=== PATIENT | male | born 1980 | race African-American/Black ===

== ENCOUNTER 2017-02-02 07:46 | Outpatient (CLI) | payer MEDICAID ==
[~2017-02-02] VITALS: Ht 177.8 cm; Wt 75.0 kg
--- NOTE | ~2017-02-02 | HEMODYNAMI ---
PATIENT:VESTA LAZAR MEDICAL RECORD: [id number] : 82 [facility] ADMISSION DATE: 02/02/17 Generatedon:02/02/201711:16 Patient name: VESTA LAZAR Patient #: [id number] SSN: : 1980 Date of study: 02/02/2017 Page: Of Hemodynamic Procedure Report Patient Data Patient Demographics Procedure consent was obtained First Name: VESTA Gender: Male Last Name: NAGI : 1980 Middle Initial: NICOLE Age: 37 year(s) Patient #: [id number] Race: Black Additional ID: [id number] Contact details [address]: [address] [place] [address] State: [place] City: [place] Zip code: [address] Past Medical History Allergies: No known allergies Admission Admission Data Admission Date: 02/02/2017 Admission Time: 7:46 Weight (lbs.): 165 Weight (kg.): 74.84 Procedure Procedure Types Cath Procedure Peripheral Cath Diagnostic Procedure Cath Peripheral Miscellaneous PARACENTESIS WITH GUIDE Procedure Description Procedure Date Procedure Date: 02/02/2017 Procedure Start Time: 10:30 Procedure Staff Name Function Eliel Jones MD Performing Physician Emery Ruelas RT Scrub Tessa Feliciano RN Nurse Vidhi Danielson RT Manager Of Internal Audit Vidhi Danielson RT Monitor Hemodynamics Rest Heart Rate: 65 (bpm) Snapshots Pre Cath Intra NCS Post Cath Vital Signs Time Heart Resp SPO2 NIBP (mmHg) Rhythm Pain Sedation Rate (ipm) (%) Status Level (bpm) 10:16:27 62 26 99 146/88(118) NSR 0 (11) 10(A) , No pain 10:20:37 62 13 100 156/93(126) NSR 0 (11) 10(A) , No pain 10:24:53 65 99 156/90(126) NSR 0 (11) 10(A) , No pain 10:29:11 60 99 146/83(125) NSR 0 (11) 10(A) , No pain 10:33:23 65 23 100 147/91(126) NSR 0 (11) 10(A) , No pain 10:37:45 67 5 142/67(128) NSR 0 (11) 10(A) , No pain 10:41:53 63 28 141/92(124) NSR 0 (11) 10(A) , No pain 10:46:03 62 28 132/88(116) NSR 0 (11) 10(A) , No pain 10:50:09 62 139/88(121) NSR 0 (11) 10(A) , No pain 10:54:21 57 23 141/83(120) NSR 0 (11) 10(A) , No pain 10:58:31 54 140/89(126) NSR 0 (11) 10(A) , No pain 11:02:43 60 26 139/82(117) NSR 0 (11) 10(A) , No pain 11:06:52 61 25 143/84(126) NSR 0 (11) 10(A) , No pain 11:11:02 45 24 138/87(109) NSR 0 (11) 10(A) , No pain 11:16:02 60 25 Measuring NSR 0 (11) 10(A) , No pain 11:16:22 55 19 153/86(128) NSR 0 (11) 10(A) , No pain Procedure Log Time Note 10:12:54 Patient Weight : 165 lbs 10:13:36 Time tracking: Regular hours 10:15:00 Plan of Care:Hemodynamics will remain stable., Cardiac rhythm will remain stable., Comfort level will be maintained., Respiratory function will remain adequate., Patient/ family verbilizes understanding of procedure., Procedure tolerated without complication., Recovers from procedure without complications.. 10:15:08 Patient received from Outpatients to IR Alert and oriented. Tansferred to table in Supine position. 10:15:10 Correct patient and procedure confirmed by team. 10:15:12 Signed procedure consent form obtained from patient. 10:15:13 ECG and BP/O2 sat monitors applied to patient. 10:15:15 Vital chart was started 10:15:16 Baseline sample Acquired. 10:15:18 Full Disclosure recording started 10:15:18 - 10:15:24 H&P Date Dictated: 02/02/2017 Within 30 days and on chart.. 10:15:30 Pre-procedure instructions explained to patient. 10:15:31 Pre-op teaching completed and patient verbalized understanding. 10:15:32 Family in waiting room. 10:15:36 Patient NPO since Midnight. 10:15:47 Patient allergic to No known allergies 10:15:56 Is patient on blood thinner?No 10:16:01 Patient diabetic? No. 10:16:03 - 10:16:06 ----Pre-sedation anethsthesia assessment.---- 10:16:09 Previous problem with sedation/anesthesia? No ? 10:16:12 Snore? No 10:16:32 Sleep apnea? No 10:16:35 Deviated septum? No 10:16:38 Opens mouth fully? Yes 10:16:40 Sticks out tongue? Yes 10:16:45 Airway obstruction? No ? 10:16:51 Dentures? No ? 10:16:53 - 10:17:08 IV patent on arrival in right forearm with 0.9% NaCl at [facility]. 10:17:29 Right abdomen area was prepped with chlora-prep and draped in sterile fashion 10:21:50 [id number] 8FR CATH DRAIN TRAY opened to sterile field. 10:22:05 CONNECTING TUBE FOR DRAINAGE BAG opened to sterile field. 10:28:14 Physician arrived 10:29:48 --------ALL STOP TIME OUT------ 10:29:53 Final Timeout: patient, procedure, and site verified with staff and physician. All members of the team are in agreement. 10:30:07 Procedure started. 10:30:13 Local anesthetic to Abdominal area with Lidocaine 1% by Eliel Jones MD.INITIAL ACCESS ONLY 11:14:33 6.2 liters drained 11:14:38 Procedure ended.(Physican Out) 11:14:50 Sharps counted by scrub and verified by R.N. 11:14:52 Insertion/operative site no bleeding no hematoma. 11:14:58 Post-op/insertion site Right Abdominal area dressed using a 4 x 4 and Tegaderm. 11:15:11 Dermabond Pen opened to sterile field. 11:15:27 Post Abdominal area:stable 11:15:29 Post procedure instruction explained to patient.Patient verbalizes understanding. 11:16:12 Report given to Outpatients. 11:16:16 Patient transfered to Outpatients with Stretcher. 11:16:44 Vital chart was stopped Device Usage Item Name Manufacture Quantity Catalog Hospital Part Current Mini mal Lot# / Number Charge Number Stock Stock Serial# Code [id number] CareFusion 1 [id number] 5 8FR CATH DRAIN TRAY CONNECTING TUBE [place] 1 [id number] 5 FOR DRAINAGE Scientific BAG Dermabond Pen Ethicon 1 [id number] 5 Signature Audit [place] Stage Time Signature Unsigned Intra-Procedure 02/02/2017 Emery 11:16:42 AM Suraj RT (R) (CV) Signatures Monitor : Vidhi Danielson RT Signature : Date : Time : [facility] [address] [id number]
[~2017-02-02 07:46] MED LIST: ENULOSE10 G/15 ML PO; FOLIC ACID1 MG PO; PRILOSEC20 MG PO; VITAMIN B-1100 M1 PO; ZYRTEC10 MG PO
[2017-02-02 09:14] VITALS: BP 134/88; Ht 177.8 cm; Wt 75.0 kg
[2017-02-02 09:24] LABS: APTT 35.1 SECONDS (22.8-39.4); INR 1.14 (0.85-1.17); PROTIME 14.4 SECONDS (11.6-15.0)
[2017-02-02] MEDS ORDERED: FUROSEMIDE40 MG PO (09:35)
[2017-02-02] MEDS ORDERED: ULTRAM50 MG PO (09:35)
[2017-02-02] MEDS ORDERED: ALDACTONE25 MG PO (09:36)
[2017-02-02 10:32] LABS: BASOPHILS 0.4 % (0-2); EOSINOPHILS 2.4 % (0-7); HEMATOCRIT 33.7 % (42.0-54.0); HEMOGLOBIN 11.5 g/dL (13.5-17.5); IMMATURE GRANULOCYTES 0.1 % (0-5); LYMPHOCYTES 23.8 % (15-50); MCH 35.7 pg (26.0-34.0); MCHC 34.1 g/dL (31.0-37.0); MCV 104.7 fL (80.0-100.0); MEAN PLATELET VOLUME 10.3 fL (7.4-10.4); MONOCYTES 11.8 % (2-11); NEUTROPHILS 61.5 % (40-80); PLATELET COUNT 185 10x3/uL (130-400); RBC 3.22 10x6/uL (4.20-6.10); RDW 13.7 % (11.5-14.5)
[2017-02-02 10:42] LABS: CALC OSMOLALITY 268 mosm/kg (275-300); CALCIUM 8.6 mg/dL (8.5-10.1); CARBON DIOXIDE 27.9 mmol/L (21.0-32.0); CHLORIDE - SERUM 100 mmol/L (98-107); CREATININE - SERUM 0.9 mg/dL (0.6-1.3); GLUCOSE 102 mg/dL (74-106); POTASSIUM - SERUM 3.5 mmol/L (3.5-5.1); SODIUM 135 mmol/L (136-145); UREA NITROGEN 10 mg/dL (7-18); eGFR NON AFRICAN AMERICAN > 90 mL/min (90-120)
[2017-02-02 12:07] LABS: PROTEIN - BODY FLUID 3.7 G/DL
--- NOTE | 2017-02-02 12:27 | NUR ---
1150 IV DC WITH CATHER TIP INTACT
[2017-02-02 14:16] LABS: EOS BF 4 %; MACROPHAGES BF 28 %; MESOTHELIALS BF 6 %; NEUT - BF 20 %
== END 2017-02-02 12:05 | disposition home or self-care (01) ==
LOC: D.OPS 07:46 → D.SP 10:00 → D.OPS 10:00
PROVIDERS: General Practice
DX: R18.8 Other ascites (principal); F20.0 Paranoid schizophrenia; Z68.22 Body mass index [BMI] 22.0-22.9, adult; F17.200 Nicotine dependence, unspecified, uncomplicated; Z01.812 Encounter for preprocedural laboratory examination

== ENCOUNTER 2017-02-28 05:40 | Outpatient (CLI) | payer MEDICAID ==
--- NOTE | ~2017-02-28 | HEMODYNAMI ---
PATIENT:VESTA LAZAR MEDICAL RECORD: [id number] : 82 LOCATION:[facility] ADMISSION DATE: 02/28/17 Generatedon:02/28/20179:24 Patient name: VESTA LAZAR Patient #: [id number] SSN: : 1980 Date of study: 02/28/2017 Page: Of Hemodynamic Procedure Report Patient Data Patient Demographics Procedure consent was obtained First Name: VESTA Gender: Male Last Name: NAGI : 1980 [facility] Initial: NICOLE Age: 37 year(s) Patient #: [id number] Race: Black Additional ID: [id number] Contact details Address: [address] [place] [address] State: [place] City: [place] Zip code: [address] Past Medical History Allergies: No known allergies Admission Admission Data Admission Date: 02/28/2017 Admission Time: 5:40 Weight (lbs.): 155 Weight (kg.): 70.31 Procedure Procedure Types Cath Procedure Peripheral Cath Diagnostic Procedure Cath Peripheral Procedure Description Procedure Date Procedure Date: 02/28/2017 Procedure Start Time: 9:04 Procedure Staff Name Function Cristian Pantoja MD Performing Physician Emery Ruelas RT Scrub Tessa Feliciano RN Nurse Vidhi Danielson RT Monitor Procedure Medications Medication Administration Route Dosage Versed I.V. 1 mg Fentanyl I.V. 50 mcg Versed I.V. 1 mg Fentanyl I.V. 50 mcg Hemodynamics Rest Heart Rate: 56 (bpm) Snapshots Pre Cath Intra NCS Post Cath Vital Signs Time Heart Resp SPO2 etCO2 NIBP (mmHg) Rhythm Pain Sedation Rate (ipm) (%) (mmHg) Status Level (bpm) 8:54:13 60 13 99 31.7 143/87(107) NSR 0 (11) 10(A) , No pain 8:58:29 62 9 99 31.7 136/80(107) NSR 0 (11) 10(A) , No pain 9:02:41 64 21 100 30.9 125/83(101) NSR 0 (11) 10(A) , No pain 9:06:53 64 24 100 31.7 132/69(96) NSR 0 (11) 10(A) , No pain 9:11:05 67 32 100 27.1 119/77(91) NSR 0 (11) 10(A) , No pain 9:15:15 66 22 100 36.2 116/70(93) NSR 0 (11) 10(A) , No pain 9:19:23 66 25 100 34.7 111/67(85) NSR 0 (11) 10(A) , No pain 9:23:27 73 15 100 22.6 109/77(95) NSR 0 (11) 10(A) , No pain Medications Time Medication Route Dose Verified Delivered Reason Notes Effectivenes s by by 9:06:46 Versed I.V. 1 mg Cristian Tessa for Pantoja Braden RN sedation 9:06:58 Fentanyl I.V. 50 Cristian Tessa for mcg Pantoja Braden RN sedation 9:11:45 Versed I.V. 1 mg Cristian Tessa for Pantoja Braden RN sedation 9:11:54 Fentanyl I.V. 50 Cristian Tessa for mcg Pantoja Braden RN sedation Procedure Log Time Note 8:45:09 Patient Weight : 155 lbs 8:45:36 Time tracking: Regular hours 8:46:22 Patient received from Outpatients to IR Alert and oriented. Tansferred to table in Supine position. 8:46:34 Signed procedure consent form obtained from patient. 8:46:53 H&P Date Dictated: 02/28/2017 Within 30 days and on chart., H&P Addendum completed by physician on day of procedure. (MUST COMPLETE FOR ALL OUTPATIENTS). 8:46:56 Pre-procedure instructions explained to patient. 8:46:57 Pre-op teaching completed and patient verbalized understanding. 8:46:59 Family unavailable. 8:47:04 Patient NPO since Midnight. 8:47:16 Patient allergic to No known allergies 8:47:21 Is patient on blood thinner?No 8:48:26 Patient diabetic? No. 8:48:29 8:48:37 ----Pre-sedation anethsthesia assessment.---- 8:48:42 Previous problem with sedation/anesthesia? No ? 8:48:46 Snore? No 8:48:48 Sleep apnea? No 8:48:50 Deviated septum? No 8:48:52 Opens mouth fully? Yes 8:48:55 Sticks out tongue? Yes 8:48:59 Airway obstruction? Yes ASTHMA 8:49:04 Dentures? No ? 8:49:37 IV patent on arrival in left antecubital with 0.9% NaCl at [facility]. 8:49:47 Right abdomen area was prepped with chlora-prep and draped in sterile fashion 8:49:56 Alarms reviewed by Susan Aggarwal 8:49:56 Sharps counted by scrub and verified by Medina 8:49:57 8:50:31 Plan of Care:Hemodynamics will remain stable., Cardiac rhythm will remain stable., Comfort level will be maintained., Respiratory function will remain adequate., Patient/ family verbilizes understanding of procedure., Procedure tolerated without complication., Recovers from procedure without complications.. 8:52:57 Vital chart was started 8:54:25 ECG and BP/O2 sat monitors applied to patient. 8:54:30 Baseline sample Acquired. 8:54:32 Full Disclosure recording started 8:54:36 9:02:50 Physician arrived 9:03:02 --------ALL STOP TIME OUT------ 9:03:03 Final Timeout: patient, procedure, and site verified with staff and physician. All members of the team are in agreement. 9:03:43 Physical assessment completed. ASA score P 2 - A patient with mild systemic disease as per Cristian Pantoja MD. 9:03:49 Sedation plan: IV Moderate Sedation Versed, Fentanyl 9:04:03 Procedure started. 9:04:21 [id number] 8FR CATH DRAIN TRAY opened to sterile field. 9:04:30 CONNECTING TUBE FOR DRAINAGE BAG opened to sterile field. 9:06:46 Versed 1 mg I.V. was administered by Tessa Feliciano RN; for sedation; 9:06:58 Fentanyl 50 mcg I.V. was administered by Tessa Feliciano RN; for sedation; 9:11:45 Versed 1 mg I.V. was administered by Tessa Feliciano RN; for sedation; 9:11:54 Fentanyl 50 mcg I.V. was administered by Tessa Feliciano RN; for sedation; 9:22:46 1.3 LITERS DRAINED FROM ABDOMEN 9:23:40 Procedure ended.(Physican Out) 9:23:50 Procedure and supply charges have been captured, reviewed, submitted and are correct. 9:24:21 Vital chart was stopped Device Usage Item Name Manufacture Quantity [facility] Hospital Part Current Mini mal Lot# / Number Charge Number Stock Stock Serial# Code [id number] CareFusion 1 [id number] 5 8FR CATH DRAIN TRAY CONNECTING TUBE [place] [address] [id number] 5 FOR DRAINAGE Scientific BAG Signature Audit [place] Stage Time Signature Unsigned Intra-Procedure 02/28/2017 Vidhi Danielson 9:24:19 AM RT(R) Signatures Monitor : Vidhi Danielson RT Signature : Date : Time : [facility] [address] [place] [address]
[~2017-02-28 05:40] MED LIST changes: +ALDACTONE25 MG PO; +FUROSEMIDE40 MG PO; +ULTRAM50 MG PO
[2017-02-28 07:32] VITALS: BMI 22.2
[2017-02-28 08:04] LABS: CALC OSMOLALITY 269 mosm/kg (275-300); CALCIUM 8.7 mg/dL (8.5-10.1); CARBON DIOXIDE 26.8 mmol/L (21.0-32.0); CHLORIDE - SERUM 101 mmol/L (98-107); CREATININE - SERUM 0.8 mg/dL (0.6-1.3); GLUCOSE 99 mg/dL (74-106); POTASSIUM - SERUM 4.2 mmol/L (3.5-5.1); SODIUM 136 mmol/L (136-145); UREA NITROGEN 8 mg/dL (7-18); eGFR NON AFRICAN AMERICAN > 90 mL/min (90-120)
[2017-02-28 08:14] LABS: BASOPHILS 0.5 % (0-2); EOSINOPHILS 2.3 % (0-7); HEMATOCRIT 37.1 % (42.0-54.0); HEMOGLOBIN 12.6 g/dL (13.5-17.5); IMMATURE GRANULOCYTES 0.2 % (0-5); LYMPHOCYTES 28.5 % (15-50); MCH 34.9 pg (26.0-34.0); MCV 102.8 fL (80.0-100.0); MEAN PLATELET VOLUME 10.2 fL (7.4-10.4); MONOCYTES 16.6 % (2-11); NEUTROPHILS 51.9 % (40-80); PLATELET COUNT 158 10x3/uL (130-400); RBC 3.61 10x6/uL (4.20-6.10); RDW 13.5 % (11.5-14.5); WBC 5.7 10x3/uL (4.8-10.8)
[2017-02-28 08:28] LABS: APTT 34.3 SECONDS (22.8-39.4); INR 1.23 (0.85-1.17); PROTIME 15.4 SECONDS (11.6-15.0)
--- NOTE | 2017-02-28 11:29 | NUR ---
1100--IV DC'D, PT WAITING ON RIDE. FRANCESCA BASHIR 111--DISCHARGE INSTRUCTIONS GIVEN, PT VERBALIZES UNDERSTANDING. PT OFF UNIT VIA WC. FRANCESCA BASHIR
== END 2017-02-28 11:15 | disposition home or self-care (01) ==
LOC: D.OPS 05:40 → D.CT 08:00 → D.OPS 11:15
PROVIDERS: Specialist
DX: R18.8 Other ascites (principal); F17.200 Nicotine dependence, unspecified, uncomplicated; F20.0 Paranoid schizophrenia; Z68.22 Body mass index [BMI] 22.0-22.9, adult; Z01.812 Encounter for preprocedural laboratory examination

== ENCOUNTER → 2017-05-02 17:18 | Outpatient (CLI) | payer MEDICAID ==
[~2017-05-02 17:18] MED LIST changes: +COREG6.25 MG; +GEODON20 MG
== END | disposition home or self-care (01) ==
LOC: D.US 08:00
DX: N60.02 Solitary cyst of left breast (principal); N60.01 Solitary cyst of right breast

== ENCOUNTER 2017-05-03 07:44 | Outpatient (CLI) | payer MEDICAID ==
[~2017-05-03] VITALS: Ht 177.8 cm; Wt 81.4 kg
--- NOTE | ~2017-05-03 | HEMODYNAMI ---
PATIENT:VESTA LAZAR MEDICAL RECORD: [id number] : 82 LOCATION:[facility] ADMISSION DATE: 05/03/17 Generatedon:05/03/201711:21 Patient name: VESTA LAZAR Patient #: [id number] SSN: : 1980 Date of study: 05/03/2017 Page: Of Hemodynamic Procedure Report Patient Data Patient Demographics Procedure consent was obtained First Name: VESTA Gender: Male Last Name: NAGI : 1980 Middle Initial: NICOLE Age: 37 year(s) Patient #: [id number] Race: Black Additional ID: [id number] Contact details Address: [address] [place] [address] State: [place] City: [place] Zip code: [address] Past Medical History Allergies: No known allergies Admission Admission Data Admission Date: 05/03/2017 Admission Time: 7:44 Procedure Procedure Types Cath Procedure Peripheral Cath Diagnostic Procedure Miscellaneous Procedure Description Procedure Date Procedure Date: 05/03/2017 Procedure Start Time: 10:35 Procedure Staff Name Function Eliel Jones MD Performing Physician Emery Ruelas RT Monitor Tessa Feliciano RN Nurse Procedure Medications Medication Administration Route Dosage Fentanyl I.V. 50 mcg Versed I.V. 1 mg Fentanyl I.V. 50 mcg Versed I.V. 1 mg Hemodynamics Rest Heart Rate: 82 (bpm) Snapshots Pre Cath Intra NCS Post Cath Vital Signs Time Heart Resp SPO2 etCO2 NIBP (mmHg) Rhythm Pain Sedation Rate (ipm) (%) (mmHg) Status Level (bpm) 10:16:30 96 0 146/97(113) NSR 0 (11) 10(A) , No pain 10:20:42 81 21 94 0 147/103(120) NSR 0 (11) 10(A) , No pain 10:24:52 78 22 93 0 139/97(114) NSR 0 (11) 10(A) , No pain 10:29:00 74 39 95 28.4 142/93(114) NSR 0 (11) 10(A) , No pain 10:33:09 74 32 95 23.9 139/94(113) NSR 0 (11) 10(A) , No pain 10:37:17 69 29 96 17.9 153/93(117) NSR 0 (11) 10(A) , No pain 10:41:29 70 36 100 22.4 147/103(121) NSR 0 (11) 10(A) , No pain 10:45:41 71 24 97 21.7 141/88(116) NSR 0 (11) 10(A) , No pain 10:49:53 71 14 98 24.7 136/86(106) NSR 0 (11) 10(A) , No pain 10:54:03 69 14 97 27.6 135/84(108) NSR 0 (11) 10(A) , No pain 10:58:13 78 26 96 20.9 130/82(103) NSR 0 (11) 10(A) , No pain 11:02:23 81 18 100 26.9 121/76(98) NSR 0 (11) 10(A) , No pain 11:06:28 69 23 90 36.6 126/77(94) NSR 0 (11) 10(A) , No pain 11:10:38 74 13 93 18.7 121/74(88) NSR 0 (11) 10(A) , No pain 11:14:46 66 28 93 17.2 127/78(104) NSR 0 (11) 10(A) , No pain 11:18:54 94 31.3 121/82(92) NSR 0 (11) 10(A) , No pain Medications Time Medication Route Dose Verified Delivered Reason Notes Effectivene ss by by 10:35:36 Fentanyl I.V. 50 Eliel Zarate for mcg Braden Jones RN sedation 10:35:47 Versed I.V. 1 mg Eliel Zarate for Braden Jones RN sedation 10:56:07 Fentanyl I.V. 50 Eliel Clarkody for mcg Braden Jones RN sedation 10:56:15 Versed I.V. 1 mg Eliel Zarate for Braden Jones RN sedation Procedure Log Time Note 10:14:50 Emery Ruelas RT (R) (CV) sent for patient. Start room use. 10:15:02 Time tracking: Regular hours 10:15:07 Plan of Care:Hemodynamics will remain stable., Cardiac rhythm will remain stable., Comfort level will be maintained., Respiratory function will remain adequate., Patient/ family verbilizes understanding of procedure., Procedure tolerated without complication., Recovers from procedure without complications.. 10:15:13 Patient arrived from Outpatients to IR. Patient remains on bed/stretche r for procedure. 10:15:15 Correct patient and procedure confirmed by team. 10:15:16 Signed procedure consent form obtained from patient. 10:15:17 ECG and BP/O2 sat monitors applied to patient. 10:15:18 Vital chart was started 10:15:19 Baseline sample Acquired. 10:15:20 Full Disclosure recording started 10:15:21 - 10:15:24 H&P Date Dictated: 05/03/2017 Within 30 days and on chart.. 10:15:25 Pre-procedure instructions explained to patient. 10:15:25 Pre-op teaching completed and patient verbalized understanding. 10:15:27 Family in waiting room. 10:15:31 Patient NPO since Midnight. 10:15:35 Is patient on blood thinner?No 10:15:37 Patient diabetic? No. 10:15:38 - 10:15:38 ----Pre-sedation anethsthesia assessment.---- 10:15:41 Previous problem with sedation/anesthesia? No ? 10:15:42 Snore? No 10:15:44 Sleep apnea? No 10:15:46 Deviated septum? No 10:15:47 Opens mouth fully? Yes 10:15:48 Sticks out tongue? Yes 10:15:50 Airway obstruction? No ? 10:16:00 Dentures? No ? 10:16:13 Patient pain scale 0/10 no pain. 10:16:33 IV patent on arrival in right forearm with 0.9% NaCl at [facility]. 10:16:40 Sharps counted by scrub and verified by R.N. 10:16:40 Alarms reviewed by R. N. 10:16:46 Right abdomen area was prepped with chlora-prep and draped in sterile fashion 10:18:16 Baseline sample Acquired. 10:34:11 Physician arrived 10:34:11 --------ALL STOP TIME OUT------ 10:34:12 Final Timeout: patient, procedure, and site verified with staff and physician. All members of the team are in agreement. 10:34:17 Right abdomen site verified by team. 10:34:23 Sedation plan: IV Moderate Sedation Medication:Versed, Fentanyl 10:35:36 Fentanyl 50 mcg I.V. was administered by Tessa Feliciano RN; for sedation ; 10:35:43 Procedure started. 10:35:47 Versed 1 mg I.V. was administered by Tessa Feliciano RN; for sedation; 10:35:54 [id number] 8FR CATH DRAIN TRAY opened to sterile field. 10:56:07 Fentanyl 50 mcg I.V. was administered by Tessa Feliciano RN; for sedation ; 10:56:15 Versed 1 mg I.V. was administered by Tessa Feliciano RN; for sedation; 11:12:57 Dermabond Pen opened to sterile field. 11:13:08 Procedure ended.(Physican Out) 11:14:20 Sharps counted by scrub and verified by R.N. 11:14:30 7.8 liters 11:15:59 Insertion/operative site no bleeding no hematoma. 11:16:08 Post Abdominal area:stable 11:16:17 Post Procedure Pulses reassessed and unchanged 11:16:18 Post procedure instruction explained to patient.Patient verbalizes understanding. 11:16:21 Procedure and supply charges have been captured, reviewed, submitted an d are correct. 11:20:51 Report given to Outpatients. 11:20:55 Patient transfered to Outpatients with Bed. 11:21:13 Vital chart was stopped Device Usage Item Name Manufacture Quantity Catalog Hospital Part Current Minimal Lot# / Number Charge Number Stock Stock Serial# Code [id number] CareFusion 1 [id number] 5 8FR CATH DRAIN TRAY Dermabond Pen Ethicon 1 [id number] 5 Signature Audit [place] Stage Time Signature Unsigned Intra-Procedure 05/03/2017 Emery 11:21:10 AM Suraj RT (R) (CV) Signatures Monitor : Emery Signature : Suraj RT Date : Time : [address] [place] [address]
[~2017-05-03 07:44] MED LIST changes: -COREG6.25 MG; -GEODON20 MG
[2017-05-03 08:12] VITALS: BP 135/83; Ht 177.8 cm; Wt 81.4 kg
[2017-05-03 09:08] LABS: BASOPHILS 0.3 % (0-2); HEMOGLOBIN 13.2 g/dL (13.5-17.5); IMMATURE GRANULOCYTES 0.2 % (0-5); LYMPHOCYTES 25.6 % (15-50); MCH 34.5 pg (26.0-34.0); MCHC 34.7 g/dL (31.0-37.0); MCV 99.2 fL (80.0-100.0); MEAN PLATELET VOLUME 9.9 fL (7.4-10.4); MONOCYTES 12.6 % (2-11); NEUTROPHILS 59.3 % (40-80); PLATELET COUNT 156 10x3/uL (130-400); RBC 3.83 10x6/uL (4.20-6.10); RDW 12.3 % (11.5-14.5); WBC 5.9 10x3/uL (4.8-10.8)
[2017-05-03 09:13] LABS: APTT 32.3 SECONDS (22.8-39.4); INR 1.06 (0.85-1.17); PROTIME 13.4 SECONDS (11.6-15.0)
[2017-05-03 09:23] LABS: CALC OSMOLALITY 269 mosm/kg (275-300); CALCIUM 8.8 mg/dL (8.5-10.1); CARBON DIOXIDE 27.5 mmol/L (21.0-32.0); CHLORIDE - SERUM 102 mmol/L (98-107); CREATININE - SERUM 0.7 mg/dL (0.6-1.3); GLUCOSE 103 mg/dL (74-106); POTASSIUM - SERUM 3.8 mmol/L (3.5-5.1); SODIUM 136 mmol/L (136-145); UREA NITROGEN 8 mg/dL (7-18); eGFR NON AFRICAN AMERICAN > 90 mL/min (90-120)
== END 2017-05-03 12:30 | disposition home or self-care (01) ==
LOC: D.OPS 07:44 → D.SP 10:00 → D.OPS 10:00
PROVIDERS: General Practice
DX: K74.69 Other cirrhosis of liver (principal); R18.8 Other ascites; Z01.812 Encounter for preprocedural laboratory examination

== ENCOUNTER 2017-06-01 11:35 | Outpatient (CLI) | payer MEDICAID ==
[~2017-06-01] VITALS: Ht 177.8 cm; Wt 77.3 kg
[2017-06-01 12:32] LABS: BASOPHILS 0.5 % (0-2); HEMATOCRIT 40.2 % (42.0-54.0); HEMOGLOBIN 13.9 g/dL (13.5-17.5); LYMPHOCYTES 25.8 % (15-50); MCH 34.7 pg (26.0-34.0); MCHC 34.6 g/dL (31.0-37.0); MCV 100.2 fL (80.0-100.0); MEAN PLATELET VOLUME 10.1 fL (7.4-10.4); MONOCYTES 10.4 % (2-11); NEUTROPHILS 62.3 % (40-80); PLATELET COUNT 164 10x3/uL (130-400); RBC 4.01 10x6/uL (4.20-6.10); RDW 12.1 % (11.5-14.5); WBC 6.1 10x3/uL (4.8-10.8)
[2017-06-01 12:41] LABS: CALC OSMOLALITY 270 mosm/kg (275-300); CALCIUM 8.9 mg/dL (8.5-10.1); CARBON DIOXIDE 25.9 mmol/L (21.0-32.0); CHLORIDE - SERUM 100 mmol/L (98-107); CREATININE - SERUM 0.8 mg/dL (0.6-1.3); GLUCOSE 89 mg/dL (74-106); POTASSIUM - SERUM 4.1 mmol/L (3.5-5.1); SODIUM 136 mmol/L (136-145); UREA NITROGEN 12 mg/dL (7-18); eGFR NON AFRICAN AMERICAN > 90 mL/min (90-120)
[2017-06-01 12:54] VITALS: BP 135/87; Ht 177.8 cm; Wt 77.3 kg
[2017-06-01 12:59] LABS: APTT 31.3 SECONDS (22.8-39.4); INR 1.11 (0.85-1.17); PROTIME 13.9 SECONDS (11.6-15.0)
== END 2017-06-01 16:45 | disposition home or self-care (01) ==
LOC: D.OPS 11:35 → D.CT 11:35 → D.OPS 16:45
PROVIDERS: Radiology Diagnostic Radiology
DX: R18.8 Other ascites (principal); K74.60 Unspecified cirrhosis of liver; R10.9 Unspecified abdominal pain; R19.00 Intra-abdominal and pelvic swelling, mass and lump, unspecified site; Z01.812 Encounter for preprocedural laboratory examination

== ENCOUNTER 2017-06-22 11:13 | Outpatient (CLI) | payer MEDICAID ==
[~2017-06-22] VITALS: Ht 177.8 cm; Wt 77.3 kg
--- NOTE | ~2017-06-22 | HEMODYNAMI ---
PATIENT:VESTA LAZAR MEDICAL RECORD: [id number] : 82 LOCATION:[facility] ADMISSION DATE: 06/22/17 Generatedon:06/22/201715:14 Patient name: VESTA LAZAR Patient #: [id number] SSN: : 1980 Date of study: 06/22/2017 Page: Of Hemodynamic Procedure Report Patient Data Patient Demographics Procedure consent was obtained First Name: VESTA Gender: Male Last Name: NAGI : 1980 Middle Initial: NICOLE Age: 37 year(s) Patient #: [id number] Race: Black Additional ID: [id number] Contact details [address]: [address] [place] [address] State: [place] City: [place] Zip code: [address] Past Medical History Allergies: No known allergies Admission Admission Data Admission Date: 06/22/2017 Admission Time: 11:13 Procedure Procedure Types Cath Procedure Peripheral Cath Diagnostic Procedure Miscellaneous PARACENTESIS WITH GUIDE Procedure Description Procedure Date Procedure Date: 06/22/2017 Procedure Start Time: 14:33 Procedure Staff Name Function Emery Ruelas RT Monitor Hank Zimmer MD Performing Physician Tessa Feliciano RN Nurse Procedure Medications Medication Administration Route Dosage Versed I.V. 1 mg Fentanyl I.V. 50 mcg Lidocaine 1% added to field 20 Versed I.V. 1 mg Fentanyl I.V. 50 mcg Hemodynamics Rest Heart Rate: 75 (bpm) Snapshots Pre Cath Intra NCS Post Cath Vital Signs Time Heart Resp SPO2 etCO2 NIBP (mmHg) Rhythm Pain Sedation Rate (ipm) (%) (mmHg) Status Level (bpm) 14:22:55 98 0 157/100(126) NSR 0 (11) 10(A) , No pain 14:27:07 76 0 98 0 155/102(129) NSR 0 (11) 10(A) , No pain 14:32:02 73 35 99 27.7 159/100(125) NSR 0 (11) 10(A) , No pain 14:36:16 71 42 100 22.4 153/100(132) NSR 0 (11) 10(A) , No pain 14:40:28 78 36 100 28.4 138/96(113) NSR 0 (11) 10(A) , No pain 14:44:34 82 11 100 16.4 137/97(114) NSR 0 (11) 10(A) , No pain 14:48:40 76 9 100 29.2 136/94(114) NSR 0 (11) 10(A) , No pain 14:52:44 75 32 100 30 137/96(118) NSR 0 (11) 10(A) , No pain 14:56:49 75 11 100 29.2 142/93(116) NSR 0 (11) 10(A) , No pain 15:00:59 69 2 100 26.2 139/84(109) NSR 0 (11) 10(A) , No pain 15:05:07 70 21 100 34.4 126/84(108) NSR 0 (11) 10(A) , No pain 15:09:50 75 15 99 0 128/82(104) NSR 0 (11) 10(A) , No pain Medications Time Medication Route Dose Verified Delivered Reason Notes Effectivene ss by by 14:36:12 Versed I.V. 1 mg Hank Clarkody for Mesha Feliciano RN sedation 14:36:23 Fentanyl I.V. 50 Hank Tessa for mcg Mesha Feliciano RN sedation 14:36:45 Lidocaine added 20ml Hank Zarate 1% to vial Mesha Feliciano RN field 15:01:12 Versed I.V. 1 mg Hank Zarate for Mesha Feliciano RN sedation 15:01:20 Fentanyl I.V. 50 Hank Tessa for mcg Mesha Feliciano RN sedation Procedure Log Time Note 14:19:36 Tessa Feliciano RN sent for patient. Start room use. 14:19:44 Time tracking: Regular hours 14:19:49 Plan of Care:Hemodynamics will remain stable., Cardiac rhythm will remain stable., Comfort level will be maintained., Respiratory function will remain adequate., Patient/ family verbilizes understanding of procedure., Procedure tolerated without complication., Recovers from procedure without complications.. 14:19:59 Patient arrived from Outpatients to IR. Patient remains on bed/stretche r for procedure. 14:20:01 Correct patient and procedure confirmed by team. 14:20:03 Signed procedure consent form obtained from patient. 14:20:04 ECG and BP/O2 sat monitors applied to patient. 14:20:05 Full Disclosure recording started 14:20:06 - 14:20:09 H&P Date Dictated: 06/22/2017 H&P Addendum completed by physician on day of procedure. (MUST COMPLETE FOR ALL OUTPATIENTS). 14:20:10 Pre-op teaching completed and patient verbalized understanding. 14:20:10 Pre-procedure instructions explained to patient. 14:20:13 Family unavailable. 14:20:17 Patient NPO since Midnight. 14:20:28 Is the patient allergic to Iodine/contrast media? No. 14:20:30 Is patient on blood thinner?No 14:20:32 Patient diabetic? No. 14:20:36 - 14:20:37 ----Pre-sedation anethsthesia assessment.---- 14:20:40 Previous problem with sedation/anesthesia? No ? 14:20:46 Snore? No 14:20:48 Sleep apnea? No 14:20:49 Deviated septum? No 14:20:51 Opens mouth fully? Yes 14:20:52 Sticks out tongue? Yes 14:20:54 Airway obstruction? No ? 14:20:57 Dentures? No ? 14:21:03 Patient pain scale 0/10 no pain. 14:21:09 IV patent on arrival in left forearm with 0.9% NaCl at [facility]. 14:21:29 Right abdomen area was prepped with chlora-prep and draped in sterile fashion 14::41 Vital chart was started 14:29:43 Baseline sample Acquired. 14:32:30 Physician arrived 14:32:31 --------ALL STOP TIME OUT------ 14:32:32 Final Timeout: patient, procedure, and site verified with staff and physician. All members of the team are in agreement. 14:32:35 Right abdomen site verified by team. 14::41 Sedation plan: IV Moderate Sedation Medication:Versed, Fentanyl 14:33:03 Procedure started. 14:33:10 Local anesthetic to Abdominal area with Lidocaine 1% by Hank Zimmer MD.INITIAL ACCESS ONLY 14:33:15 CONNECTING TUBE FOR DRAINAGE BAG ([id number]) opened to sterile field. 14:33:15 [id number] 8FR CATH DRAIN TRAY opened to sterile field. 14:36:12 Versed 1 mg I.V. was administered by Tessa Feliciano RN; for sedation; 14:36:23 Fentanyl 50 mcg I.V. was administered by Tessa Feliciano RN; for sedation ; 14:36:45 Lidocaine 1% 20ml vial added to field was administered by Tessa Feliciano RN; ; 15:01:12 Versed 1 mg I.V. was administered by Tessa Feliciano RN; for sedation; 15:01:20 Fentanyl 50 mcg I.V. was administered by Tessa Feliciano RN; for sedation ; 15:06:18 7.3 liters drained 15:08:27 Dermabond Pen opened to sterile field. 15:09:00 Procedure ended.(Physican Out) 15:09:50 Sharps counted by scrub and verified by R.N. 15:09:54 Insertion/operative site no bleeding no hematoma. 15:11:21 Post Abdominal area:stable 15:11:47 Post procedure instruction explained to patient.Patient verbalizes understanding. 15:11:55 Procedure and supply charges have been captured, reviewed, submitted an d are correct. 15:13:25 Report given to Outpatients. 15:14:09 Full Disclosure recording stopped Device Usage Item Name Manufacture Quantity Catalog Hospital Part Current Mini mal Lot# / Number Charge Number Stock Stock Serial# Code [id number] CareFusion 1 [id number] 8FR CATH DRAIN TRAY CONNECTING TUBE [place] 1 [id number] FOR DRAINAGE Scientific BAG ([id number]) Dermabond Pen Cardinal 1 [id number] Health Signature Audit [place] Stage Time Signature Unsigned Intra-Procedure 06/22/2017 Emery 3:14:45 PM Suraj RT (R) (CV) Signatures Monitor : Emery Signature : Suraj RT Date : Time : [place] [id number] [place] [id number]
[2017-06-22] MEDS ORDERED: COREG6.25 MG (12:31)
[2017-06-22] MEDS ORDERED: GEODON20 MG (12:32)
[2017-06-22] MEDS ORDERED: ULTRAM50 MG PO (12:32)
[2017-06-22 12:39] VITALS: BP 133/99; Ht 177.8 cm; Wt 77.3 kg
[2017-06-22 13:22] LABS: BASOPHILS 0.5 % (0-2); EOSINOPHILS 1.5 % (0-7); HEMOGLOBIN 13.1 g/dL (13.5-17.5); IMMATURE GRANULOCYTES 0.1 % (0-5); LYMPHOCYTES 22.4 % (15-50); MCH 34.2 pg (26.0-34.0); MCHC 34.5 g/dL (31.0-37.0); MCV 99.2 fL (80.0-100.0); NEUTROPHILS 63.5 % (40-80); PLATELET COUNT 162 10x3/uL (130-400); RBC 3.83 10x6/uL (4.20-6.10); RDW 12.7 % (11.5-14.5); WBC 7.3 10x3/uL (4.8-10.8)
[2017-06-22 13:36] LABS: APTT 30.9 SECONDS (22.8-39.4); INR 1.09 (0.85-1.17); PROTIME 13.7 SECONDS (11.6-15.0)
[2017-06-22 13:43] LABS: CALC OSMOLALITY 271 mosm/kg (275-300); CALCIUM 8.2 mg/dL (8.5-10.1); CARBON DIOXIDE 27.5 mmol/L (21.0-32.0); CHLORIDE - SERUM 102 mmol/L (98-107); CREATININE - SERUM 0.7 mg/dL (0.6-1.3); GLUCOSE 95 mg/dL (74-106); POTASSIUM - SERUM 4.1 mmol/L (3.5-5.1); SODIUM 137 mmol/L (136-145); UREA NITROGEN 8 mg/dL (7-18); eGFR NON AFRICAN AMERICAN > 90 mL/min (90-120)
[2017-06-22 14:40] LABS: ALBUMIN 2.4 g/dL (3.4-5.0); ALKALINE PHOSPHATASE 142 U/L (46-116); ALT (SGPT) 22 U/L (10-68); BILIRUBIN - TOTAL 0.78 mg/dL (0.2-1.3); CALC OSMOLALITY 272 mosm/kg (275-300); CALCIUM 8.6 mg/dL (8.5-10.1); CARBON DIOXIDE 26.8 mmol/L (21.0-32.0); CHLORIDE - SERUM 103 mmol/L (98-107); CREATININE - SERUM 0.7 mg/dL (0.6-1.3); GLUCOSE 96 mg/dL (74-106); POTASSIUM - SERUM 4.2 mmol/L (3.5-5.1); PROTEIN - SERUM 7.6 g/dL (6.4-8.2); SODIUM 137 mmol/L (136-145); UREA NITROGEN 9 mg/dL (7-18); eGFR NON AFRICAN AMERICAN > 90 mL/min (90-120)
== END 2017-06-22 16:30 | disposition home or self-care (01) ==
LOC: D.OPS 11:13 → D.CT 14:00 → D.OPS 14:00
PROVIDERS: Radiology Diagnostic Radiology
DX: R18.8 Other ascites (principal); F17.200 Nicotine dependence, unspecified, uncomplicated; R94.5 Abnormal results of liver function studies; Z01.812 Encounter for preprocedural laboratory examination

== ENCOUNTER 2017-07-16 05:29 | Outpatient (CLI) | payer MEDICAID ==
--- NOTE | ~2017-07-16 | HEMODYNAMI ---
PATIENT:VETSA LAZAR MEDICAL RECORD: [id number] : 82 LOCATION:[facility] ADMISSION DATE: 07/16/17 Generatedon:07/16/20179:08 Patient name: VESTA LAZAR Patient #: [id number] SSN: : 1980 Date of study: 07/16/2017 Page: Of Hemodynamic Procedure Report Patient Data Patient Demographics Procedure consent was obtained First Name: VESTA Gender: Male Last Name: NAGI : 1980 Middle Initial: NICOLE Age: 37 year(s) Patient #: [id number] Race: Black Additional ID: [id number] Contact details [address]: [address] [place] [address] State: [place] City: [place] Zip code: [address] Past Medical History Allergies: No known allergies Admission Admission Data Admission Date: 07/16/2017 Admission Time: 5:29 Procedure Procedure Types Cath Procedure Peripheral Cath Diagnostic Procedure Miscellaneous PARACENTESIS WITH GUIDE Procedure Description Procedure Date Procedure Date: 07/16/2017 Procedure Start Time: 8:18 Procedure Staff Name Function Hank Zimmer MD Performing Physician Evangelina Gregg RT Monitor Luis Manuel Lopez Nurse Tessa Feliciano RN Nurse Emery Ruelas RT Scrub Procedure Medications Medication Administration Route Dosage Lidocaine 1% added to field 20 Versed I.V. 2 mg Fentanyl I.V. 50 mcg Fentanyl I.V. 50 mcg Hemodynamics Rest Heart Rate: 91 (bpm) Snapshots Pre Cath Intra NCS Post Cath Vital Signs Time Heart Resp SPO2 etCO2 NIBP (mmHg) Rhythm Pain Sedation Rate (ipm) (%) (mmHg) Status Level (bpm) 8:12:03 101 18 92 26.1 157/100(126) NSR 0 (11) 10(A) , No pain 8:16:17 94 16 93 23.1 162/103(139) NSR 0 (11) 10(A) , No pain 8:20:31 93 23 92 25.4 160/99(123) NSR 0 (11) 10(A) , No pain 8:24:43 94 23 90 31.3 144/94(117) NSR 0 (11) 8(A) , No pain 8:28:55 92 24 91 33.6 141/85(110) NSR 0 (11) 8(A) , No pain 8:33:05 90 21 91 35.8 137/85(99) NSR 0 (11) 8(A) , No pain 8:37:15 88 20 97 30.6 134/83(104) NSR 0 (11) 8(A) , No pain 8:41:25 91 16 92 29.1 137/82(103) NSR 0 (11) 8(A) , No pain 8:45:34 84 11 94 27.6 144/88(113) NSR 0 (11) 8(A) , No pain 8:49:46 82 29 92 29.1 137/83(110) NSR 0 (11) 8(A) , No pain 8:53:56 85 33 94 26.9 135/82(108) NSR 0 (11) 8(A) , No pain 8:58:04 88 20 93 26.9 139/88(106) NSR 0 (11) 8(A) , No pain 9:02:14 84 35 90 0 139/87(106) NSR 0 (11) 8(A) , No pain 9:06:24 83 30 92 0 133/82(107) NSR 0 (11) 8(A) , No pain Medications Time Medication Route Dose Verified Delivered Reason Notes Effectiven ess by by 8:08:40 Lidocaine added 20ml 1% to vial field 8:19:58 Versed I.V. 2 mg Hank Issa for Fully awak e @ eMsha Lopez sedation 8:23:34 8:20:12 Fentanyl I.V. 50 Hank Issa for Fully aw[place] @ [facility] [place]ha [place] sedation 8:23:29 8:23:18 Fentanyl I.V. 50 Hank Issa for Mostly mcg Mesha Lopez sedation sleeping @ 8:55:19 Procedure Log Time Note 8:02:01 [id number] 8FR CATH DRAIN TRAY opened to sterile field. 8:03:35 Luis Manuel Lopez sent for patient. Start room use. 8:04:45 Patient arrived from Outpatients to IR. Patient remains on bed/stretcher for procedure. 8:05:25 Time tracking: Regular hours 8:05:36 Plan of Care:Hemodynamics will remain stable., Cardiac rhythm will remain stable., Comfort level will be maintained., Respiratory function will remain adequate., Patient/ family verbilizes understanding of procedure., Procedure tolerated without complication., Recovers from procedure without complications.. 8:05:46 Correct patient and procedure confirmed by team. 8:05:51 Signed procedure consent form obtained from patient. 8:05:53 ECG and BP/O2 sat monitors applied to patient. 8:05:57 Full Disclosure recording started 8:06:03 8:06:15 H&P Date Dictated: 07/16/2017 H&P Addendum completed by physician on day of procedure. (MUST COMPLETE FOR ALL OUTPATIENTS). 8:06:17 Pre-procedure instructions explained to patient. 8:06:19 Pre-op teaching completed and patient verbalized understanding. 8:06:26 Family unavailable. 8:06:31 Patient NPO since Midnight. 8:06:54 ----Pre-sedation anethsthesia assessment.---- 8:07:03 Previous problem with sedation/anesthesia? No ? 8:07:11 Snore? No 8:07:17 Sleep apnea? No 8:07:22 Deviated septum? No 8:07:26 Opens mouth fully? Yes 8:07:29 Sticks out tongue? Yes 8:07:41 Dentures? No ? 8:07:42 8:07:44 8:08:40 Lidocaine 1% 20ml vial added to field was administered by ; ; 8:09:10 Patient pain scale 6/10 ?. 8:09:22 IV patent on arrival in right forearm with 0.9% NaCl at [facility]. 8:09:30 Alarms reviewed by RShyanne N. 8:09:33 Sharps counted by scrub and verified by RShyanneN. 8:11:09 Vital chart was started 8:11:56 Right abdomen area was prepped with chlora-prep and draped in sterile fashion 8:12:06 Baseline sample Acquired. 8:12:10 Baseline sample Acquired. 8:17:26 Physician arrived 8:17:27 --------ALL STOP TIME OUT------ 8:17:30 Final Timeout: patient, procedure, and site verified with staff and physician. All members of the team are in agreement. 8:17:38 Right abdomen site verified by team. 8:17:51 Sedation plan: IV Moderate Sedation Medication:Versed, Fentanyl 8:18:44 Procedure started. 8:18:53 Local anesthetic to Abdominal area with Lidocaine 1% by Hank Zimmer MD.INITIAL ACCESS ONLY 8:19:41 CONNECTING TUBE FOR DRAINAGE BAG ([id number]) opened to sterile field. 8:19:58 Versed 2 mg I.V. was administered by Luis Manuel Lopez; for sedation; 8:20:12 Fentanyl 50 mcg I.V. was administered by Luis Manuel Lopez; for sedation; 8:23:18 Fentanyl 50 mcg I.V. was administered by Luis Manuel Lopez; for sedation; 8:23:29 Effectiveness of Fentanyl delivered @ 8:20:12 is: Fully awake 8:23:34 Effectiveness of Versed delivered @ 8:19:58 is: Fully awake 8:55:19 Effectiveness of Fentanyl delivered @ 8:23:18 is: Mostly sleeping 9:01:50 Procedure ended.(Physican Out) 9:02:27 7.6liters fluid drained 9:02:33 Sharps counted by scrub and verified by R.N. 9:02:37 Insertion/operative site no bleeding no hematoma. 9:02:51 Post-op/insertion site Right Abdominal area dressed using a 4 x 4 and Tegaderm. 9:03:02 Post Abdominal area:stable 9:03:14 Post procedure instruction explained to patient.Patient verbalizes understanding. 9:03:21 Procedure and supply charges have been captured, reviewed, submitted and are correct. 9:08:05 Report given to Outpatients. 9:08:14 Patient transfered to Outpatients with Stretcher. 9:08:55 Vital chart was stopped Device Usage Item Name Manufacture Quantity Catalog Hospital Part Current Mini mal Lot# / Number Charge Number Stock Stock Serial# Code [id number] CareFusion 1 [id number] 8FR CATH DRAIN TRAY CONNECTING TUBE [place] 1 [id number] FOR DRAINAGE Scientific BAG ([id number]) Signature Audit [place] Stage Time Signature Unsigned Intra-Procedure 07/16/2017 Evangelina 9:08:52 AM Marysol PYLE (Kevin) (CV) Signatures Monitor : Evangelina Signature : Marysol PYLE Date : Time : [address] [id number]
[~2017-07-16 05:29] MED LIST changes: +COREG6.25 MG; +GEODON20 MG
[2017-07-16 06:20] VITALS: BMI 24.4
[2017-07-16 06:45] LABS: BASOPHILS 0.7 % (0-2); EOSINOPHILS 1.9 % (0-7); HEMATOCRIT 36.1 % (42.0-54.0); HEMOGLOBIN 12.5 g/dL (13.5-17.5); IMMATURE GRANULOCYTES 0.2 % (0-5); MCHC 34.6 g/dL (31.0-37.0); MCV 98.1 fL (80.0-100.0); MEAN PLATELET VOLUME 10.1 fL (7.4-10.4); MONOCYTES 13.6 % (2-11); NEUTROPHILS 50.6 % (40-80); PLATELET COUNT 155 10x3/uL (130-400); RBC 3.68 10x6/uL (4.20-6.10); RDW 12.4 % (11.5-14.5); WBC 5.9 10x3/uL (4.8-10.8)
[2017-07-16 06:58] LABS: CALC OSMOLALITY 264 mosm/kg (275-300); CALCIUM 8.1 mg/dL (8.5-10.1); CARBON DIOXIDE 22.6 mmol/L (21.0-32.0); CHLORIDE - SERUM 99 mmol/L (98-107); CREATININE - SERUM 0.8 mg/dL (0.6-1.3); GLUCOSE 78 mg/dL (74-106); POTASSIUM - SERUM 3.7 mmol/L (3.5-5.1); SODIUM 134 mmol/L (136-145); UREA NITROGEN 8 mg/dL (7-18); eGFR NON AFRICAN AMERICAN > 90 mL/min (90-120)
[2017-07-16 07:19] LABS: APTT 33.1 SECONDS (22.8-39.4); INR 1.07 (0.85-1.17); PROTIME 13.5 SECONDS (11.6-15.0)
== END 2017-07-16 10:27 | disposition home or self-care (01) ==
LOC: D.OPS 05:29 → D.CT 08:00 → D.OPS 08:00
PROVIDERS: Radiology Diagnostic Radiology
DX: R18.8 Other ascites (principal); K74.60 Unspecified cirrhosis of liver; Z01.812 Encounter for preprocedural laboratory examination